=== PATIENT | male | born 1965 | race Caucasian/White ===

== ENCOUNTER → 2016-10-28 | Outpatient (CLI) | payer BC ==
--- NOTE | 2016-10-29 00:01 | CONS ---
DATE OF CONSULTATION: 10/28/2016 CONSULTATION/NEW PATIENT EVALUATION HISTORY OF PRESENT ILLNESS/SLEEP-WAKE EVALUATION: 51-year-old gentleman who has been evaluated in the sleep center for awakenings from sleep. SLEEP SCHEDULE: Patient's usual sleep schedule on working days is from around 8:30 p.m. to 4:30 a.m. on weekends from around 10:00 p.m. to 4:30 a.m. FALLING ASLEEP: No problem with falling asleep. No TV in bedroom. DURING SLEEP: He wakes up from sleep 3 times with nocturia. He sleeps by himself. No information about snoring. He is grinding his teeth using mouth splint. He possibly has restless legs. DURING THE DAY/WAKE STATE: He wakes up tired in the morning and feels sleepy during the day. According to him, he can take nap whole day, but he could not do it during working days but during weekends he is able to sleep. Hamer Sleepiness Scale is 7. PAST MEDICAL HISTORY: Positive for hypothyroidism, hyperlipidemia, migraines headaches with extremely severe pain. SOCIAL HISTORY: Positive for smoking 1 pack a day for about 10 years; quit about 15 years ago. Alcohol consumption rarely. MEDICATIONS: 1. Levothyroxine. 2. Simvastatin. 3. ( ). PAST SURGICAL HISTORY: Right knee surgery. REVIEW OF SYSTEMS: Tiredness and sleepiness during the day. No fevers. No double vision. No recent chest pain. No shortness of breath. No abdominal pain. No bleeding episodes. No blood in urine. No seizure episodes. FAMILY HISTORY: Arthritis, sinus headaches, other types of headache, different types of headaches, mental illness, acid reflux. PHYSICAL EXAMINATION: GENERAL: A pleasant 51-year-old gentleman without distress. VITAL SIGNS: BP 136/102, HR 82, RR 20, height 5 feet 6 inches. Weight 251, BMI 40.5. Neck 17 inches in circumference 98.4. Oxygen saturation at room air 98%. HEENT: PERRLA, EOMI oropharynx low position of soft palate. Slight restriction of nasal breathing. Ears tympanic. NECK: Supple. No JVD. Thyroid is not palpable. LUNGS: Clear to percussion and to auscultation. Good air exchange. No wheezing or rhonchi. HEART: S1, S2 regular. No murmurs, gallops or rubs. ABDOMEN: Obese. Soft and nontender. Bowel sounds are present. No organomegaly appreciated. EXTREMITIES: No clubbing or cyanosis. GROCERY BUYER: Awake, alert, and oriented x3. Cranial nerves 2 to 7 intact. There is no fasciculation or atrophy noted. No focal deficits observed. IMPRESSION: 1. Awakenings from sleep with nocturia, low position of soft palate, feeling any sleepiness and tiredness during the day. 2. Obesity, low position of soft palate, obstructive sleep apnea-hypopnea syndrome. 3. Obesity; body mass index 40.5. 4. Hypertension in the office, blood pressure 136/102. 5. Hypothyroidism. 6. Hyperlipidemia. 7. Migraines. 8. Status post the right knee surgery. PLAN: 1. Home sleep apnea test for evaluation of patient's breathing during sleep 2. CPAP/BiPAP titration if sleep study confirms obstructive sleep apnea-hypopnea syndrome. 3. Preferable position during sleep on the side. 4. No driving if patient feels any sleepiness. Patient is aware of civil and criminal liability for unsafe driving. 5. I will see patient for follow-up visit to explain results of the testing and following plan. Thank you very much for referring this patient for consultation. Sincerely, Burt Ponce MD, PhD, FAASM. Diplomat of [employer], Sleep Medicine Board by [employer] Shipping Team Leader of [facility] [place]
== END ==
LOC: SLEEP 16:22
PROVIDERS: ATTEND Internal Medicine
DX: G47.33 Obstructive sleep apnea (adult) (pediatric) (principal); E66.9 Obesity, unspecified; I10 Essential (primary) hypertension; E03.9 Hypothyroidism, unspecified; E78.5 Hyperlipidemia, unspecified; Z68.41 Body mass index [BMI] 40.0-44.9, adult; G43.909 Migraine, unspecified, not intractable, without status migrainosus; Z79.899 Other long term (current) drug therapy; Z87.891 Personal history of nicotine dependence
CPT/HCPCS: 99211

== ENCOUNTER → 2017-02-17 | Outpatient (CLI) | payer BC ==
--- NOTE | 2017-02-18 11:28 | PN ---
DATE: 02/17/2017 A 51-year-old gentleman who has been followed in Sleep Center for treatment of obstructive sleep apnea-hypopnea syndrome. Recently patient had home sleep apnea test and CPAP titration and I discussed results of sleep studies with patient in details. Home sleep apnea test showed apnea-hypopnea index 19 and during titration at the pressure of 9 patient's respiration was under control. The patient was started on treatment with CPAP machine at home. Able to use equipment without significant problems. I checked his CPAP unit. Usage is 100% more than 4 hours per night. CPAP pressure is 9 cm of water. Ramp is automatic regimen. Leak is only 4 liters per minute. Apnea-hypopnea index reading for the last month is only 0.3 which is totally normal. MEDICATIONS: Simvastatin, levothyroxine, ( ). PHYSICAL EXAMINATION: GENERAL: The patient is in no distress. VITAL SIGNS: BP 127/77, HR 90, RR 16, weight 256.4, height 66, temperature 98.4 , body mass index 41.3, oxygen saturation on room air 96%. HEENT: PERRLA, EOMI. Evaluation of oropharynx showed extremely low position of soft palate. NECK: Supple. No JVD. Thyroid is not palpable. LUNGS: clear to percussion and to auscultation. Good air exchange. No wheezing or rhonchi. HEART: S1, S2 regular. No murmurs, gallops or rubs. ABDOMEN: Obese. Soft and nontender. Bowel sounds are present. No organomegaly appreciated. EXTREMITIES: No clubbing or cyanosis. SUPERVISOR ROLLER SHOP: Awake, alert and oriented x3. Cranial nerves II through VII intact. There is no fasciculation or atrophy noted. No focal deficits observed. IMPRESSION: 1. Moderate obstructive sleep apnea-hypopnea syndrome. Apnea-hypopnea index 19 , on control with CPAP at 9 cm of water. Patient demonstrated 100% compliance with treatment benefitting from treatment. 2. Obesity. BMI 41.3. 3. Hypothyroidism. 4. Hyperlipidemia. 5. No recent episode of migraines after starting on treatment with CPAP. PLAN: 1. Continue treatment with CPAP every night. 2. I change ramp to 30 minutes instead of automatic regimen. 3. Losing weight. 4. Sleep hygiene with regular time in bed for at least 8 hours. 5. No driving if patient feels any sleepiness. 6. Follow up visit in 10 months or earlier if patient has any problems. Thank you very much for allowing me to participate in the management of your patient. Sincerely, Francisco Ponce MD, PhD, FAASM Diplomat of [employer], Sleep Medicine Board by [employer] Cigarette Tester of [facility] [place] [facility]
== END ==
LOC: SLEEP 16:25
PROVIDERS: ATTEND Internal Medicine
DX: G47.33 Obstructive sleep apnea (adult) (pediatric) (principal); E66.9 Obesity, unspecified; E03.9 Hypothyroidism, unspecified; E78.5 Hyperlipidemia, unspecified; Z68.41 Body mass index [BMI] 40.0-44.9, adult

== ENCOUNTER → 2017-05-20 | Outpatient (CLI) | payer BC ==
--- NOTE | 2017-05-20 15:15 | XR ---
Cervical spine HISTORY: Headache, neck pain 5 views of the cervical spine and 6 images Cervical vertebral bodies show preserved height. Bone mineralization is maintained. Minimal anterolis thesis grade 1 C2-3, retrolisthesis grade 1-5. Loss of disc height present at C4-5 and C5-6 with asso ciated spondylosis. Loss of normal cervical lordosis could be due to muscle spasm. Multilevel facet a rthropathy changes present. No significant foraminal encroachment on the right, some lateral extensio n of endplates at C3-4, C4-5 on the left causes foraminal encroachment. Prevertebral soft tissues are normal. IMPRESSION: Degenerative disc disease, consider cervical MRI
== END ==
LOC: RADXRMAIN 14:27
PROVIDERS: ATTEND Family Medicine
DX: M50.30 Other cervical disc degeneration, unspecified cervical region (principal)
CPT/HCPCS: 72050

== ENCOUNTER → 2018-06-16 | Outpatient (CLI) | payer BC ==
--- NOTE | 2018-06-16 11:10 | MR ---
EXAMINATION TYPE: MR cervical spine wo con DATE OF EXAM: 06/16/2018 COMPARISON: X-ray 05/20/2017 HISTORY: Cervical disc degeneration TECHNIQUE: Multiplanar, multisequence images of the cervical spine were acquired. C2-C3: Loss of disc signal and space. No disc herniation or canal stenosis. Mild facet arthropathy. N eural foramina patent. C3-C4: Mild degenerative disc disease. Uncovertebral joint hypertrophy bilaterally. No Canal stenosis . Facet arthropathy noted with mild bilateral foraminal encroachment. C4-C5: Degenerative disc disease with uncovertebral joint hypertrophy and facet arthropathy. There is moderate bilateral foraminal encroachment. There is circumferential disc bulging greater paracentral ly to left but no definite central stenosis. C5-C6: Degenerative disc disease with circumferential disc bulging. Findings greater paracentrally to the right. Uncovertebral joint hypertrophy noted greater on the right with moderate right foraminal encroachment and mild left foraminal encroachment. No central stenosis. C6-C7: Degenerative disc disease. There is facet arthropathy but no foraminal encroachment or canal s tenosis. No focal herniation. C7-T1: No evidence for degenerative disc disease. No disc bulge/herniation or protrusion. No Canal stenosis. Foramina are patent bilaterally. Cervical segments are intact. There is normal alignment. Cervical spinal cord is of normal signal. Craniovertebral junction relationships are within normal limits. Heterogeneous marrow signal is non specific. Vertebral body hemangioma of C7 noted. IMPRESSION: 1. Multilevel degenerative disc disease with multilevel facet arthropathy and cervical spondylosis. 2. Broad-based disc bulging C5-C6 greater paracentrally the right resulting in bilateral foraminal en croachment greater on the right. 3. Disc bulging C4-C5 greater paracentrally to left with bilateral moderate foraminal encroachment. 4. There is asymmetric prominence of the left submandibular gland which is only partially included on exam and could be correlated with ultrasound or CT as clinically warranted.
== END | disposition home or self-care (01) ==
LOC: RADMRIMAIN 09:45
PROVIDERS: ATTEND Family Medicine
DX: M50.221 Other cervical disc displacement at C4-C5 level (principal); M50.31 Other cervical disc degeneration, high cervical region; M47.812 Spondylosis without myelopathy or radiculopathy, cervical region; M46.92 Unspecified inflammatory spondylopathy, cervical region
CPT/HCPCS: 72141

== ENCOUNTER → 2018-06-30 | Outpatient (CLI) | payer BC ==
--- NOTE | 2018-06-30 09:55 | US ---
EXAMINATION TYPE: US thyroid st tissue head/neck DATE OF EXAM: 06/30/2018 COMPARISON: CLINICAL HISTORY: R59.0 localized enlarged lymph nodes. Left prominent submandibular gland per MRI Left neck scanned superior to thyroid/inferior to jaw. Gland measured = 1.9 x 3.1 x 1.9 cm. Contral ateral images taken. Two lymph node appearing lesions seen. 1- medial to gland = 1.6 x 1.0 x 0.7 cm . 2- lateral to gland- 1.5 x 0.9 x 0.6 cm IMPRESSION: 1. Lymph nodes as discussed.
== END | disposition home or self-care (01) ==
LOC: RADUSWWP 09:22
PROVIDERS: ATTEND Family Medicine
DX: I89.9 Noninfective disorder of lymphatic vessels and lymph nodes, unspecified (principal)
CPT/HCPCS: 76536

== ENCOUNTER 2018-08-14 08:59 | Day surgery (SDC) | payer BC ==
[2018-08-14 09:12] VITALS: TEMP 98
[2018-08-14 10:12] VITALS: BP 128/76; PULSE 71; RESP 16
--- NOTE | 2018-08-14 10:29 | US ---
ULTRASOUND GUIDED FNA LEFT NECK LYMPH NODE BIOPSY: CLINICAL HISTORY: Request for left neck lymph node FNA FINDINGS: The procedure was explained to the patient. The risks, complications, benefits and alternatives were discussed and any questions were answered. Informed consent was obtained. Patient was placed supin e on the ultrasound table and prepped and draped in the usual sterile fashion. Utilizing a 25 gauge needle, five passes were made into the requested left neck lymph node. Patient was stable throughout the procedure. Pathology is pending. All elements of maximal barrier technique were utilized. IMPRESSION: 1. Successful ultrasound guided FNA left neck lymph node biopsy.
== END 2018-08-14 10:20 | disposition home or self-care (01) ==
LOC: RADPROMAIN 08:59
PROVIDERS: ATTEND Otolaryngology
DX: R59.0 Localized enlarged lymph nodes (principal)
CPT/HCPCS: 10005; 38505; 76942; 88305

== ENCOUNTER → 2018-09-08 | Outpatient (CLI) | payer BC ==
--- NOTE | 2018-09-09 16:42 | CT ---
EXAMINATION TYPE: CT soft tissue neck w con DATE OF EXAM: 09/08/2018 COMPARISON: None HISTORY: swelling to left side of neck CT DLP: 504.5 mGycm CONTRAST: Patient injected with 100 mL of Isovue 300. TECHNIQUE: Axial images at 3 mm thick sections. Reconstructed images in the coronal plane and sagitt al plane are reviewed. FINDINGS: Limited CT sections are obtained the lung apices. The lung apices appear clear. There is a three-vessel arch. Supraclavicular region is unremarkable. Subglottic airway is normal. CT neck: The torus tubarius and fossa of Rosenmuller are normal. Process Engineering Manager spaces are normal. Para nasal sinuses and mastoid air cells are clear. Parotid glands appear normal and symmetrical. Submandibular glands, are normal. Parapharyngeal spac es are normal. There may be an enlarged submental lymph node measuring 1.5 cm. This is just right of midline. Scatte red shotty lymph nodes are present bilaterally. The hypopharynx appears within normal limits. Vocal cord level appear symmetrical. Thyroid as visualized is normal. Osseous structures are normal. IMPRESSIONS: 1. Possible large submental lymph node. No additional suspicious adenopathy is evident. 2. Suspicious abnormality to account for left-sided neck swelling is not identified.
== END ==
LOC: RADCTMAIN 17:39
PROVIDERS: ATTEND Otolaryngology
DX: R22.1 Localized swelling, mass and lump, neck (principal)
CPT/HCPCS: 70491; Q9967

== ENCOUNTER 2019-09-10 08:43 | Day surgery (SDC) | payer BC ==
[2019-09-05 17:00] VITALS: BMI 41.9
[~2019-09-10 08:43] MED LIST: LACTATED RINGERS 1,000 ML IV SCH
[2019-09-10 09:14] VITALS: TEMP 97.6
[2019-09-10] MEDS ORDERED: LACTATED RINGERS 1,000 ML IV ONE (09:21)
[2019-09-10] MEDS ORDERED: LIDOCAINE 1% 20 ML VIAL (10MG/ML) FOR IV START INTRADERMA ONE (09:22)
[2019-09-10] MEDS ORDERED: LIDOCAINE 2% INJ 20 MG/ML (20 ML MDV) ONE (09:38)
[2019-09-10] MEDS ORDERED: PROPOFOL 10 MG/ML 20 ML VIAL IV ONE (09:38)
--- NOTE | 2019-09-10 10:13 | P.PCN ---
Date of Procedure: 09/10/19 Description of Procedure: BRIEF HISTORY: Patient is a 54-year-old male presenting for outpatient colonoscopy for blood in the stool. The patient reports last colonoscopy approximately 6-7 years ago and normal per his recollection. Denies any change in bowel habits, gross rectal bleeding or abdominal pain. Denies any family history of colon cancer. PROCEDURE PERFORMED: Colonoscopy. PREOPERATIVE DIAGNOSIS: Blood in the stool, last colonoscopy 6-7 years ago per his recollection. ESTIMATED BLOOD LOSS: Minimal. IV sedation per Anesthesia. PROCEDURE: After informed consent was obtained, the patient, was brought into the endoscopy unit. IV sedation was administered by Anesthesia under continuous monitoring. Digital rectal examination was normal. Initially the Olympus CF-190 flexible video colonoscope was then inserted in the rectum, gradually advanced into the cecum without any difficulty. Careful examination was performed as the scope was gradually being withdrawn. Ileocecal valve and the appendiceal orifice were visualized and appeared normal. Prep was excellent. Mucosa of the cecum, ascending colon, transverse colon, descending colon, sigmoid colon, and rectum appeared normal. Retroflexion was performed in the rectum and no lesions were seen, low-grade internal hemorrhoids noted. The patient tolerated the procedure well. IMPRESSION: Normal-appearing colon from rectum to cecum. Low-grade internal hemorrhoids noted. RECOMMENDATIONS: Findings of this examination were discussed with the patient and his father. Okay to resume diet. Okay to resume medications. Okay to resume screening at regular intervals, with repeat colonoscopy in 10 years if no polyps were found first colonoscopy (patient is unsure of the results).
[2019-09-10 10:17] VITALS: RESP 16
[2019-09-10 10:34] VITALS: BP 121/85; PULSE 72
== END 2019-09-10 10:47 ==
LOC: ORWHC2ENDO 08:43
PROVIDERS: ATTEND Internal Medicine
DX: K92.1 Melena (principal); K64.8 Other hemorrhoids; G47.33 Obstructive sleep apnea (adult) (pediatric); E78.5 Hyperlipidemia, unspecified; E07.9 Disorder of thyroid, unspecified; G43.909 Migraine, unspecified, not intractable, without status migrainosus; K21.9 Gastro-esophageal reflux disease without esophagitis; E66.9 Obesity, unspecified; Z79.890 Hormone replacement therapy; Z79.899 Other long term (current) drug therapy; Z98.890 Other specified postprocedural states; Z87.891 Personal history of nicotine dependence; Z68.41 Body mass index [BMI] 40.0-44.9, adult
CPT/HCPCS: 45378; J2001; J2704

== ENCOUNTER → 2020-07-08 | Outpatient (CLI) | payer BC ==
--- NOTE | 2020-07-09 07:36 | US ---
EXAMINATION TYPE: US thyroid st tissue head/neck DATE OF EXAM: 07/08/2020 COMPARISON: US dated 06/30/[address] & [address] dated 09/08/2018 CLINICAL HISTORY: R59.0 localized enlarged lymph nodes. Scanning was performed directly over palp, as pointed out by patient under left chin. The palpable is by the submandibular gland and appears as hypoechoic rim with echogenic center. There also appears to be internal flow, suggestive of lymph node. This measures 1.8 x 0.6 cm. No other abn ormality noted. IMPRESSION: The limited ultrasound at the level of the palpable abnormality at the left submandibular location shows a stable appearance compared to prior ultrasound dated 06/30/2018 is consistent with a benign appearing lymph node.
== END | disposition home or self-care (01) ==
LOC: RADUSWWP 16:46
PROVIDERS: ATTEND Family Medicine
DX: R59.0 Localized enlarged lymph nodes (principal)
CPT/HCPCS: 76536

== ENCOUNTER → 2020-09-15 | Outpatient (CLI) | payer BC ==
--- NOTE | 2020-09-15 23:24 | MR ---
EXAMINATION TYPE: MR cervical spine wo con DATE OF EXAM: 09/15/2020 COMPARISON: 06/16/2018 HISTORY: Neck pain and headaches. Images obtained from the skull base to T1 vertebra without contrast. Normal alignment. There is mild disc space narrowing at C4-5 and C5-6. There is no compression fractu re. Cervical spinal cord shows fairly normal signal pattern. There is small linear area of increased signal in the cord on the T2 sagittal images at the C7 level but not seen on the axial images. This i s probably artifact. The brainstem is intact. There is no spinal stenosis. There is developmentally large spinal canal. Th ere is no cervical paraspinal mass. I see no bony destructive process. IMPRESSION: Mild spondylotic changes in the lower cervical spine at C4-5 and C5-6 with mild posterior disc bulgin g. No spinal stenosis.
== END | disposition home or self-care (01) ==
LOC: RADMRIMAIN 21:23
PROVIDERS: ATTEND Physical Medicine & Rehabilitation
DX: M50.121 Cervical disc disorder at C4-C5 level with radiculopathy (principal); M47.22 Other spondylosis with radiculopathy, cervical region
CPT/HCPCS: 72141

== ENCOUNTER → 2020-09-30 | Outpatient (CLI) | payer BC ==
--- NOTE | 2020-09-30 16:11 | XR ---
Cervical spine HISTORY: Neck pain and headaches 5 views of the cervical spine Comparison cervical MRI 09/15/2019 20 1/2 loss of disc height is present at C4-5, C5-6, there is assoc iated spondylosis. Some reversal the normal cervical lordosis is noted. Prevertebral soft tissues are normal. C7-T1 is not well seen. Cervical vertebral bodies show preserved height and bone mineralizat ion. No evident foraminal encroachment. Thoracic spinal curvature is suspected. IMPRESSION: Degenerative disc disease. See report of cervical MRI dated 09/15/2020.
== END ==
LOC: RADXRMAIN 13:04
PROVIDERS: ATTEND Physical Medicine & Rehabilitation
DX: M50.30 Other cervical disc degeneration, unspecified cervical region (principal)
CPT/HCPCS: 72050